=== PATIENT | female | born 1975 | race Caucasian/White ===

== ENCOUNTER 2019-08-21 23:41 | Emergency (ER) | payer BC, OTHER ==
[~2019-08-21] VITALS: Ht 170.2 cm; Wt 90.7 kg
[2019-08-22 00:52] LABS: ABSOLUTE NEUTROPHILS 4.4 thou/uL (1.4-8.2); BASOPHILS 1.1 % (0.0-2.0); EOSINOPHILS 1.6 % (0.0-3.0); HEMATOCRIT 45.1 % (37.0-47.0); HEMOGLOBIN 14.8 gm/dL (12.0-15.0); LYMPHOCYTES 29.1 % (24.0-44.0); MCH 31.6 pg (26.0-34.0); MCHC 32.7 g/dL (28.0-37.0); MCV 96.6 fL (80.0-100.0); MONOCYTES 10.1 % (1.0-8.0); PLATELET COUNT 321 thou/uL (150-400); POLYS 58.1 % (36.0-66.0); RBC 4.67 mil/uL (4.20-5.00); RDW 12.8 % (10.5-14.5); WBC 7.5 thou/uL (4.0-11.0)
[2019-08-22 00:59] LABS: CALCIUM 8.9 mg/dL (8.5-10.1); CREATININE 0.8 mg/dL (0.6-1.0); POTASSIUM 5.7 mmol/L (3.5-5.1)
[2019-08-22] MEDS ORDERED: BREO ELLIPTA 11 EACH INH (01:24)
[2019-08-22] MEDS ORDERED: ZYRTEC10 M5 PO (01:24)
[2019-08-22] MEDS ORDERED: MONTELUKAST SODI4 MG PO (01:25)
[2019-08-22 01:51] VITALS: BP 123/74
== END 2019-08-22 01:59 | disposition home or self-care (01) ==
LOC: ER 23:41
PROVIDERS: Emergency Medicine
DX: J34.89 Other specified disorders of nose and nasal sinuses (principal); J45.909 Unspecified asthma, uncomplicated; F10.929 Alcohol use, unspecified with intoxication, unspecified; Z79.899 Other long term (current) drug therapy; W01.0XXA Fall on same level from slipping, tripping and stumbling without subsequent striking against object, initial encounter; Y93.01 Activity, walking, marching and hiking; Y92.89 Other specified places as the place of occurrence of the external cause; Y90.9 Presence of alcohol in blood, level not specified; Y99.8 Other external cause status